=== PATIENT | male | born 1950 | race Caucasian/White ===

== ENCOUNTER 2016-11-25 06:06 | Observation (INO) | payer OTHER, BC ==
[~2016-11-25] VITALS: Ht 152.4 cm; Wt 80.0 kg
[2016-11-25 06:31] LABS: HEMATOCRIT 46.9 % (38.0-50.0); MCH 32.5 PG (29.0-34.0); MCHC 34.5 G/DL (30.0-36.0); MCV 94.2 FL (86-99); MEAN PLAT.VOLUME 9.9 uM^3 (9.0-12.4); PLATELET COUNT 228 K/uL (156-360); RBC DIS.WIDTH-CV 12.1 % (11.8-14.6); RBC DIS.WIDTH-SD 40.9 % (39-53); RED BLOOD COUNT 4.98 M/uL (4.00-5.50); WHITE BLOOD COUNT 7.9 K/uL (4.1-10.2)
[2016-11-25 06:44] LABS: CHLORIDE 104 mEq/L (99-109); SODIUM 137 mEq/L (136-147)
[2016-11-25 06:45] LABS: GLUCOSE 110 mg/dL (70-99)
[2016-11-25 06:47] LABS: ANION GAP 13 MEQ/L (2-14)
[2016-11-25 06:49] LABS: GFR ESTIMATE (CALCULATED) 54 mL/min/
[2016-11-25 06:50] LABS: UREA NITROGEN (BUN) 24 mg/dL (9-23)
[2016-11-25 06:53] LABS: TROP-I INTERPRETATION NEGATIVE; TROPONIN-I < 0.01 ng/mL (0.0-0.30)
[2016-11-25 07:46] LABS: ADD MIUA? YES; BILIRUBIN NEGATIVE; BLOOD TRACE; COLOR YELLOW ((YELLOW)); GLUCOSE (STRIP) NEGATIVE; KETONES NEGATIVE; LEUKOCYTES NEGATIVE; NITRITE NEGATIVE; PH, URINE 5.5 (5-8); PROTEIN (STRIP) NEGATIVE; SPECIFIC GRAVITY 1.023 (1.000-1.030); UROBILINOGEN 0.2 MG/DL (0.2-1.0)
[2016-11-25 07:58] LABS: BACTERIA NONE SEEN; CASTS NONE SEEN /LPF; CRYSTALS NONE SEEN; EPITHELIAL CELLS RARE; MUCUS NONE SEEN; PATHOLOGICAL CAST NONE SEEN; RED BLOOD CELLS 0-5 /HPF (0-5); SMALL ROUND CELL NONE SEEN; WHITE BLOOD CELLS 0-5 /HPF (0-5); YEAST-LIKE CELL NONE SEEN
[2016-11-25] MEDS ORDERED: TAMSULOSIN HCL0.4 MG PO ×2 (08:10→11:20)
[2016-11-25] MEDS ORDERED: FENOFIBRATE145 M1 PO (08:10)
[2016-11-25] MEDS ORDERED: DUTASTERIDE0.5 MG PO ×2 (08:11→11:12)
[2016-11-25] MEDS ORDERED: CIALIS20 MG PO (08:12)
[2016-11-25] MEDS ORDERED: TRICOR145 MG PO (11:12)
[2016-11-25] MEDS ORDERED: CIALIS10 MG PO ×2 (11:19→11:21)
[2016-11-25 12:29] VITALS: BP 171/67
[2016-11-25 12:39] LABS: HDL CHOLESTEROL 32 MG/DL (Desirable>=40); LDL CHOLESTEROL 98 mg/dL (Desirable<100); NON-HDL CHOLESTEROL 122 mg/dL (Desirable<160); TOTAL CHOLESTEROL 154 mg/dL (Desirable<200); TRIGLYCERIDES 121 MG/DL (Normal: <150)
[2016-11-25 15:45] VITALS: BP 118/67
[2016-11-25 18:29] LABS: TROP-I INTERPRETATION NEGATIVE; TROPONIN-I < 0.01 ng/mL (0.0-0.30)
[2016-11-25 20:04] VITALS: BP 119/62
[2016-11-26 00:02] VITALS: BP 121/62
[2016-11-26 01:57] LABS: TROP-I INTERPRETATION NEGATIVE; TROPONIN-I < 0.01 ng/mL (0.0-0.30)
[2016-11-26 04:02] VITALS: BP 106/64
[2016-11-26 08:15] VITALS: BP 115/74
[2016-11-26] MEDS ORDERED: LO-DOSE ASPIRIN81 M2 PO (09:01)
== END 2016-11-26 10:37 | disposition home or self-care (01) ==
LOC: EME 06:06 → 5WEST 10:36 → EDOF 10:36 → 5WEST 12:27
PROVIDERS: Internal Medicine
DX: R07.9 Chest pain, unspecified (principal); R31.9 Hematuria, unspecified; N18.2 Chronic kidney disease, stage 2 (mild); E78.5 Hyperlipidemia, unspecified; Z82.49 Family history of ischemic heart disease and other diseases of the circulatory system
CPT/HCPCS: 71020; 80048; 80061; 81003; 84484; 85027; 93005; 99281; 99285; G0378